=== PATIENT | male | born 1955 | race Caucasian/White ===

== ENCOUNTER 2017-03-25 15:35 | Observation (INO) | payer BC ==
[~2017-03-25] VITALS: Ht 188 cm; Wt 129.0 kg
--- NOTE | 2017-03-25 15:49 | PHYS DOC ---
Adult General HPI HPI Patient is a 61 year old M who presents with dizziness. Patient was digging a ditch for the past couple hours and when he got done he attempted to walk to his truck and became extremely dizzy but did not pass out. Patient complains of some shortness of breath but denies chest pain. Patient states he's had these episodes off-and-on for the past couple days however today was by far the worst. Patient denies any fevers. Patient denies any nausea/vomiting/diarrhea. Patient has no other complaints. Review of Systems Review of Systems GEN: Denies fevers, chills, sweats HEENT: Denies blurred vision, sore throat CV: Denies chest pain RESP: Denies shortness of air, cough GI: Denies n/v/d NEURO: dizziness MSK: Denies weakness, joint pain/swelling Physical Exam Physical Exam GEN.: Moderate distress, generalized weakness, HEENT: Head is normocephalic, atraumatic NECK: Supple. LUNGS: CTAB. HEART: RRR, S1, S2 present. Peripheral pulses intact ABDOMEN: Soft, nontender. Positive bowel sounds. EXTREMITIES: Without any cyanosis. NEUROLOGIC: Cranial nerves II through grossly intact without any focal neurologic deficits PSYCHIATRIC: Confused SKIN: No ulcerations Current Patient Data Lab Results Laboratory Tests Test 03/25/17 15:50 White Blood Count 10.9 x10^3/uL Red Blood Count 5.08 x10^6/uL Hemoglobin 15.2 g/dL Hematocrit 43.5 % Mean Corpuscular Volume 86 fL Mean Corpuscular Hemoglobin 30 pg Mean Corpuscular Hemoglobin Concent 35 g/dL Red Cell Distribution Width 14.3 % Platelet Count 169 x10^3/uL Neutrophils (%) (Auto) 81 % Lymphocytes (%) (Auto) 12 % Monocytes (%) (Auto) 6 % Eosinophils (%) (Auto) 0 % Basophils (%) (Auto) 1 % Neutrophils # (Auto) 8.8 x10^3uL Lymphocytes # (Auto) 1.3 x10^3/uL Monocytes # (Auto) 0.6 x10^3/uL Eosinophils # (Auto) 0.0 x10^3/uL Basophils # (Auto) 0.1 x10^3/uL Sodium Level 141 mmol/L Potassium Level 3.8 mmol/L Chloride Level 103 mmol/L Carbon Dioxide Level 22 mmol/L Anion Gap 16 Blood Urea Nitrogen 31 mg/dL Creatinine 2.0 mg/dL Estimated GFR (Cockcroft-Gault) 33.9 BUN/Creatinine Ratio 16 Glucose Level 161 mg/dL Calcium Level 9.9 mg/dL Total Bilirubin 1.1 mg/dL Aspartate Amino Transf (AST/SGOT) 23 U/L Alanine Aminotransferase (ALT/SGPT) 42 U/L Alkaline Phosphatase 72 U/L Troponin I Quantitative < 0.017 ng/mL Total Protein 8.1 g/dL Albumin 4.5 g/dL Albumin/Globulin Ratio 1.3 Current Medications Medications (Trade) Dose Ordered Sig/Tami Route PRN Reason Start Time Stop Time Status Last Admin Dose Admin Sodium Chloride 1,000 ml @ 1,000 mls/hr 1X ONCE IV 03/25/17 16:00 03/25/17 16:59 03/25/17 16:05 EKG EKG 1542: EKG shows normal sinus rhythm rate of 84 no STEMI [] Radiology/Procedures Radiology/Procedures CT Head: No obvious intracranial bleed [] Course & Med Decision Making Course & Med Decision Making Pertinent Labs and Imaging studies reviewed. (See chart for details) ED course: Patient was seen and evaluated emergency room cardiac workup was ordered 1630: Updated patient on the lab results and the plan to admit for acute renal failure and heatstroke, on reexamination patient's patient's mental status has improved 1643: Discussed CC/HP/PMH with Dr. Marie and recommends admit [] MDM: After reviewing the chart, CC/HPI/PMH, physical exam, [lab results], [ radiological results], I believe the patient suffered from heatstroke with acute renal failure and needs to be admitted to hospital for further evaluation and management. On reexamination patient's mental status improved. Dragon Disclaimer Dragon Disclaimer This chart was dictated in whole or in part using Voice Recognition software in a busy, high-work load, and often noisy Emergency Department environment. It may contain unintended and wholly unrecognized errors or omissions. Departure Departure: Impression: Primary Impression: Acute renal failure Additional Impression: Heatstroke Disposition: ADMITTED INPATIENT Admitting Physician: Andrea Marie Condition: IMPROVED Referrals: ANDREA MARIE MD (PCP) Problem Qualifiers Primary Impression: Acute renal failure Acute renal failure type: unspecified Qualified Codes: N17.9 - Acute kidney failure, unspecified Additional Impression: Heatstroke Encounter type: initial encounter Qualified Codes: T67.0XXA - Heatstroke and sunstroke, initial encounter PRESTON GARCIA DO Mar 25, 2017 15:48
[2017-03-25] MEDS ORDERED: IV NORMAL SALINE 1,000ML 1,000 ML IV ONE (16:00)
[2017-03-25 16:07] LABS: BASO # 0.1 x10^3/uL (0.0-0.2); BASO % 1 % (0-3); EOS % 0 % (0-3); HEMATOCRIT 43.5 % (39.0-53.0); HEMOGLOBIN 15.2 g/dL (13.0-17.5); LYMPH # 1.3 x10^3/uL (1.0-4.8); LYMPH % 12 % (24-48); MEAN CORPUSCULAR HEMOGLOBIN 30 pg (25-35); MEAN CORPUSCULAR HGB CONC 35 g/dL (31-37); MEAN CORPUSCULAR VOLUME 86 fL (79-100); MONO # 0.6 x10^3/uL (0.0-1.1); MONO % 6 % (0-9); NEUT # 8.8 x10^3uL (1.8-7.7); NEUT % 81 % (31-73); PLATELET COUNT 169 x10^3/uL (140-400); RED BLOOD COUNT 5.08 x10^6/uL (4.30-5.70); RED CELL DISTRIBUTION WIDTH 14.3 % (11.5-14.5); WHITE BLOOD COUNT 10.9 x10^3/uL (4.0-11.0)
[2017-03-25 16:17] LABS: ALBUMIN 4.5 g/dL (3.4-5.0); ALBUMIN/GLOBULIN RATIO 1.3 (1.0-1.7); CALCIUM 9.9 mg/dL (8.5-10.1); GFR 33.9; POTASSIUM 3.8 mmol/L (3.5-5.1); TOTAL BILIRUBIN 1.1 mg/dL (0.2-1.0); TOTAL PROTEIN 8.1 g/dL (6.4-8.2)
--- NOTE | 2017-03-25 16:27 | RAD ---
CT of the head without contrast, 03/25/2017: History: Dizziness The ventricles are within normal limits in size. There is no shift of the midline structures. There is no evidence of acute intracranial hemorrhage or mass effect. IMPRESSION: No acute intracranial abnormality is detected. PQRS Compliance Statement: One or more of the following individualized dose reduction techniques were utilized for this examination: 1. Automated exposure control 2. Adjustment of the mA and/or kV according to patient size 3. Use of iterative reconstruction technique
[2017-03-25] MEDS ORDERED: ONDANSETRON PF 4 MG/2 ML VIAL. IV PRN (16:45)
[2017-03-25] MEDS ORDERED: MORPHINE SULFATE 4 MG/ML DISP.SYRIN. IV PRN (16:45)
[2017-03-25] MEDS ORDERED: ACETAMINOPHEN 325 MG TABLET PO PRN (16:45)
[2017-03-25 16:51] LABS: BILIRUBIN,URINE NEG (NEG); CLARITY,URINE CLEAR; COLOR,URINE YELLOW; GLUCOSE,URINE NEG (NEG)
[2017-03-25 16:52] LABS: BACTERIA,URINE 0 /HPF (0-FEW); NITRITE,URINE NEG (NEG); SQUAMOUS EPITHELIAL CELL,UR FEW /LPF; UROBILINOGEN,URINE 0.2 mg/dL (0.2 mg/dL)
[2017-03-25 16:54] LABS: HYALINE CASTS, URINE MANY /HPF
[2017-03-25] MEDS ORDERED: ONDANSETRON PF 4 MG/2 ML VIAL. IV ONE (17:00)
--- NOTE | 2017-03-25 17:18 | RAD ---
Chest Single view 03/25/2017 Indication: Dizziness. Comparison: 08/06/2010. Findings: Hyperinflation of both lungs. Cardiac and mediastinal silhouettes are within normal limits. No pleural effusion, pneumothorax or focal consolidation. Impression: No acute cardiopulmonary abnormality.
[2017-03-25] MEDS: IV NORMAL SALINE 1,000ML 1,000 ML IV SCH (17:42)
[2017-03-25 17:48] VITALS: BP 135/67
--- NOTE | 2017-03-25 18:03 | EKG ---
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
[2017-03-25] MEDS ORDERED: SILD20TA2 PO (18:26)
[2017-03-25] MEDS ORDERED: TAMS0.4C2 PO (18:26)
[2017-03-25 19:36] VITALS: BP 114/69
[2017-03-25] MEDS ORDERED: SIMV40TA3 PO (19:44)
[2017-03-25] MEDS ORDERED: ONDA4TAB10 PO (19:44)
[2017-03-25] MEDS ORDERED: CLON0.1T PO (19:44)
[2017-03-25] MEDS ORDERED: ATEN50TA PO (19:44)
[2017-03-25] MEDS ORDERED: MINO100C PO (19:44)
[2017-03-25] MEDS ORDERED: ASPI81TA50 PO (19:44)
[2017-03-25] MEDS ORDERED: GLYB5TAB3 PO (19:44)
[2017-03-25] MEDS ORDERED: NIFE30TA9 PO (19:44)
[2017-03-25] MEDS ORDERED: LISI1TAB7 PO (19:44)
[2017-03-25] MEDS ORDERED: ONDANSETRON ODT 4 MG TAB.RAPDIS PO PRN (19:45)
[2017-03-25] MEDS: cloNIDine HCL 0.1 MG TABLET PO SCH (20:45)
[2017-03-25 20:51] VITALS: BP 116/77
[2017-03-25] MEDS ORDERED: ATENOLOL 50 MG TABLET PO SCH (21:00)
[2017-03-25] MEDS ORDERED: glyBURIDE 5 MG TABLET PO SCH (21:00)
[2017-03-25] MEDS ORDERED: MINOCYCLINE 100 MG CAPSULE PO SCH (21:00)
[2017-03-25 23:12] VITALS: BP 127/74
--- NOTE | 2017-03-26 01:16 | ACF ---
Admission Criteria Forms RENAL FAILURE, ACUTE Clinical Indications for Admission to Inpatient Care ( Place 'X' for any and all applicable criteria): Admission is indicated for ALL (if I & II) or III of the following [A](2)(3)(4)( 5)(6)(7): [ ]I. Acute renal failure as indicated by ANY ONE of the following: [ ]a) A 3-fold rise in serum creatinine from baseline [ ]b) Serum creatinine greater than 4 mg/dL (354 micromoles/L) with an acute rise greater than 0.5 mg/dL (44.2 micromoles/L) [ ]c) Reduction of more than 75% in estimated glomerular filtration rate from baseline [ ]d) Estimated glomerular filtration rate less than 35 mL/min/1.73m2 (0.59mL/sec/1.73m2)in a child up to 18 years of age [ ]e) Anuria indicated by ALL of the following: [ ]i) Adequate volume status [ ]ii) Cessation of urine output indicated by ANY ONE of the following: [ ]1) Urine output less than 0.3 mL/kg/hr for 24 hours [ ]2) Anuria (urine output less than 0.1 mL/kg/ hr) for 12 hours [ ] II. Renal failure cannot be managed in an outpatient setting or observational care setting as indicating by ANY ONE of the following: [ ]a) Altered mental status that is severe or persistent [ ]b) Volume overload or Respiratory distress (eg, clinically significant pulmonary edema) that is severe or persistent [ ]c) Cardiac arrhythmias of immediate concern [ ]d) Hemodynamic instability [ ]e) Clinically significant electrolyte abnormality that requires inpatient care (eg, hyperkalemia with severe ECG findings)[B] [ ]f) Clinically significant metabolic abnormality (eg, acidosis) that is severe or persistent [ ]g) Acute treatment of renal failure (eg, renal replacement therapy) not feasible or appropriate in observational care setting [ ]h) Clinical situation too unstable or uncertain (eg, inadequate urine output, ongoing decline in renal function, etiology unclear) [ ]i) Necessary support and caregiver ability to comply with outpatient treatment cannot be arranged in observation care timeframe (eg, within 24 hours) [ ]j) Other significant finding or clinical condition judged not to be within scope of observation care [x]III.General contraindications and/or Inappropriate clinical situations for Observational Care in patients with Acute Renal Failure, when ANY ONE of the following is required: [ x]a) Prediction of prolongation of LOS based on ANY ONE of the following may be considered as a contraindication for observational care 2, 3, 4, 5, 6, 7, 8 , 9, 10, 11 [ ]i) Age > 65 yrs. [ ]ii) Patient arriving by ambulance [ ]iii) Patient with high acuity [x]iv) Patient requiring vital sign monitoring [ ]v) Patient on IV medication [ ]b) Systolic blood pressures 180mmHg 3,12 [ ]c) Patient with altered mental status including delirium and other alteration of consciousness, (3) [ ]d) Patient whose discharge disposition will be to a fpc home or rehabilitation home should not be managed in Emergency Department Observation Unit. CMS rule requires 3 days hospital stay before such placement.3,13 [ ]e) Patient with failure to thrive due to broad array of etiologies 3, 16,17 [ ]f) Inability to ambulate 3,14 Extended stay beyond goal length of stay may be needed for(13) [ ]a) Continuing uremic complications [ ]b) Care for comorbidities [ ]c) acute renal failure [ ]d) Need for dialysis The original [employer] content created by [employer] has been revised. The portions of the content which have been revised are identified through the use of italic text or in bold, and [facility] has neither reviewed nor approved the modified material. All other unmodified content is copyright [employer]. Please see references footnoted in the original [facility] edition 2016 Admission Criteria Met?: Yes MAURA REMY Mar 26, 2017 01:15
[2017-03-26] MEDS: IV NORMAL SALINE 1,000ML 1,000 ML IV SCH (01:43)
[2017-03-26 05:47] VITALS: BP 118/71
[2017-03-26 05:55] LABS: BASO # 0.1 x10^3/uL (0.0-0.2); BASO % 1 % (0-3); EOS # 0.2 x10^3/uL (0.0-0.7); EOS % 2 % (0-3); HEMATOCRIT 37.9 % (39.0-53.0); HEMOGLOBIN 12.9 g/dL (13.0-17.5); LYMPH # 2.2 x10^3/uL (1.0-4.8); LYMPH % 23 % (24-48); MEAN CORPUSCULAR HEMOGLOBIN 30 pg (25-35); MEAN CORPUSCULAR HGB CONC 34 g/dL (31-37); MEAN CORPUSCULAR VOLUME 88 fL (79-100); MONO # 0.7 x10^3/uL (0.0-1.1); MONO % 8 % (0-9); NEUT # 6.3 x10^3uL (1.8-7.7); NEUT % 66 % (31-73); PLATELET COUNT 144 x10^3/uL (140-400); RED BLOOD COUNT 4.32 x10^6/uL (4.30-5.70); RED CELL DISTRIBUTION WIDTH 14.1 % (11.5-14.5); WHITE BLOOD COUNT 9.6 x10^3/uL (4.0-11.0)
[2017-03-26 06:04] LABS: ALBUMIN 3.5 g/dL (3.4-5.0); ALBUMIN/GLOBULIN RATIO 1.1 (1.0-1.7); CALCIUM 8.3 mg/dL (8.5-10.1); CREATININE 1.4 mg/dL (0.7-1.3); GFR 51.2; POTASSIUM 3.8 mmol/L (3.5-5.1); TOTAL BILIRUBIN 0.6 mg/dL (0.2-1.0); TOTAL PROTEIN 6.6 g/dL (6.4-8.2)
[2017-03-26 07:56] VITALS: BP 118/71
[2017-03-26] MEDS: cloNIDine HCL 0.1 MG TABLET PO SCH (07:56)
[2017-03-26] MEDS ORDERED: ASPIRIN ENTERIC COATED 81 MG TABLET.DR. PO SCH (09:00)
[2017-03-26] MEDS ORDERED: SIMVASTATIN 40 MG TABLET. PO SCH (09:00)
[2017-03-26] MEDS ORDERED: hydroCHLOROthiazide 25 MG TABLET PO SCH (09:00)
[2017-03-26] MEDS ORDERED: LISINOPRIL 20 MG TABLET PO SCH (09:00)
--- NOTE | 2017-04-01 15:09 | HP ---
ADMIT DATE: 03/25/2017 HISTORY OF PRESENT ILLNESS: A 61-year-old gentleman came in through the Emergency Room, apparently have been out working on his place here for the last couple of days in the hot sun, not drinking enough fluids, became increasingly dizzy, lightheaded, did not pass out, did have some shortness of breath, but denied any chest pain. The patient does have these episodes last couple of days. He denies any nausea, vomiting. When he came through the Emergency Room, the patient has somewhat decreased mental affect and was noted to be hyperthermia. The patient was admitted to the hospital for further evaluation and treatment thereof. 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 MEDICATIONS: Adalat CC 30 mg, atenolol 50 mg, Zocor 40, Flomax 0.4, lisinopril/hydrochlorothiazide 20/25, Celebrex 200, minocycline 100 mg daily, clonidine 0.1 b.i.d., Xanax 0.25, glyburide 5 mg daily. ALLERGIES: Hydrocodone, metformin, and lisinopril. FAMILY HISTORY: Father had heart disease, coronary artery disease with multiple stents. Mother alive at 76 years of age. SOCIAL HISTORY: The patient denies smoking, alcohol, or drug use. REVIEW OF SYSTEMS: Unremarkable. The patient denies any general lethargy, lightheadedness. PHYSICAL EXAMINATION: GENERAL: White male in moderate amount of distress. VITAL SIGNS: Blood pressure 144/76, pulse 90, temperature actually low at 97.9, pulse ox excellent. HEENT: The patient's head atraumatic, normocephalic. Eyes: PERRLA without jaundice. SKIN: Kind of cool and clammy otherwise. NECK: Supple. LUNGS: Diminished, but clear. CARDIOVASCULAR: Regular sinus rhythm, S1, S2. ABDOMEN: Soft, nontender. No rebound or guarding. Positive bowel sounds. EXTREMITIES: No clubbing, cyanosis, or edema. NEUROLOGIC: The patient alert and oriented x 3. IMPRESSION: Hyperthermia, dehydration. PLAN: The patient will be admitted, given IV bolus of cooled normal saline, monitor for any further change in mental status to make further evaluation on him as indicated. HALINA YIN MD DR: KISHAN/alma JOB#: [id number] / [id number]
--- NOTE | 2017-04-01 19:16 | DS ---
DATE OF DISCHARGE: 03/26/2017 HOSPITAL COURSE: The patient is a 61-year-old gentleman came in as a result of heat prostration became increasingly dizzy, lightheaded, and diaphoretic. The patient was out in the hot sun digging a ditch for the last couple of days. The patient notes really quite lethargic. He was found to be markedly dehydrated as a result of his workout there in the hot sun without drinking enough fluids. His creatinine was up to 2 and BUN of 31. He also had elevated hemoglobin and hematocrit compared to what it was after he was given boluses of IV normal saline came down to 12 and 37 and the creatinine went from 2 to 1.4. Otherwise, cardiac enzymes were negative. Sodium and potassium are negative. The patient made excellent progress during the rest of his hospitalization and was discharged home on regular diet and decreased activity. He warned about working in the hot sun without getting enough fluids. He understood. The patient will return to clinic in 7-10 days or sooner as needed. ____ see MRAD. Decreased activity and return to clinic for follow up as indicated. HALINA YIN MD DR: KISHAN/alma JOB#: [id number] / [id number]
== END 2017-03-26 11:47 | disposition home or self-care (01) ==
LOC: ER 15:35 → 1 SOUTH 16:46 → INTOOBSV 16:46 → ER 16:47
PROVIDERS: ADMIT Family Medicine; ATTEND Family Medicine
DX: R50.9 Fever, unspecified (principal); E86.0 Dehydration; E11.9 Type 2 diabetes mellitus without complications; I10 Essential (primary) hypertension; E78.5 Hyperlipidemia, unspecified; M47.896 Other spondylosis, lumbar region; M17.9 Osteoarthritis of knee, unspecified; K58.9 Irritable bowel syndrome, unspecified; N17.9 Acute kidney failure, unspecified; T67.5XXA Heat exhaustion, unspecified, initial encounter; Z82.49 Family history of ischemic heart disease and other diseases of the circulatory system
CPT/HCPCS: 36415; 70450; 71010; 80053; 81001; 84484; 85027; 93005; 96361; 96374; 97165; 99285; G0378; J2405; J7030; G0379

== ENCOUNTER 2021-05-02 13:17 | Emergency (ER) | payer MEDICARE, BC ==
[~2021-05-02] VITALS: Ht 188 cm; Wt 136.8 kg
[~2021-05-02 13:17] MED LIST: ASPI81TA50 PO; ATEN50TA PO; CLON0.1T PO; GLYB5TAB3 PO; LISI1TAB20 PO; MINO100C61 PO; NIFE30TA15 PO; ONDA4TAB10 PO; SILD20TA2 PO; SIMV40TA18 PO; TAMS0.4C2 PO
[2021-05-02 13:33] VITALS: BP 162/100
--- NOTE | 2021-05-02 13:51 | PHYS DOC ---
Past History Past Medical History: Diabetes, High Cholesterol, Hypertension Past Surgical History: Knee Replacement Alcohol Use: None Drug Use: None General Adult EDM: Chief Complaint: HYPERTENSION HPI: HPI: Patient is a 65-year-old male being seen in the ER for hypertension with nausea, lightheadedness, and headache that started last night. He usually takes 20 mg of lisinopril, hydrochlorothiazide, 0.1 mg of clonidine as needed, 50 mg atenolol. He states that he ran out of his hydrochlorothiazide 3 days ago. He has noticed some increased lower extremity edema since running out of his hydrochlorothiazide. Patient reports he checked his blood pressure last night and it was 206/112. He states that he usually takes 1 tablet of his clonidine when his blood pressure is elevated but took 3 last night. He went to his half sole fitter this afternoon and was sent to the ER. He states that he cannot rate his level of pain in his head because it is not really a pain. He states it is generalized. He denies vomiting, spinning sensation, phonophobia, photophobia, vision changes, chest pain, shortness of breath, fever. Upon ER arrival, patient's blood pressure is 162/100 and is noted to be bradycardic. Review of Systems: Review of Systems: 14 body systems of the review of systems have been reviewed. See HPI for pertinent positive and negative responses, otherwise all other systems are negative, nonpertinent or noncontributory Allergies: Allergies: Allergies Coded Allergies Type Severity Reaction Last Updated Verified meperidine Allergy Unknown 03/25/17 Yes Physical Exam: PE: Constitutional: Well developed, well nourished, no acute distress, non-toxic appearance. [] HENT: Normocephalic, atraumatic, bilateral external ears normal, oropharynx moist, no oral exudates, nose normal. [] Eyes: PERRLA, EOMI, 4 mm bilaterally, conjunctiva normal, no discharge. [] Neck: Normal range of motion, no stridor Cardiovascular:Heart rate bradycardic rhythm, no murmur [] Lungs & Thorax: Bilateral breath sounds clear to auscultation [] Abdomen: Bowel sounds normal, soft, obese, no tenderness, no masses, no pulsatile masses. [] Skin: Warm, dry, no erythema, no rash. [] Back: Normal range of motion Extremities: No tenderness, no cyanosis, no clubbing, ROM intact, no edema. [] Neurologic: Alert and oriented X 3, normal motor function, normal sensory function, no focal deficits noted. [] Psychologic: Affect normal, judgement normal, mood normal. [] Current Patient Data: Labs: Laboratory Tests Test 05/02/21 14:00 White Blood Count 7.6 x10^3/uL Red Blood Count 4.23 x10^6/uL Hemoglobin 13.0 g/dL Hematocrit 38.0 % Mean Corpuscular Volume 90 fL Mean Corpuscular Hemoglobin 31 pg Mean Corpuscular Hemoglobin Concent 34 g/dL Red Cell Distribution Width 14.6 % Platelet Count 144 x10^3/uL Neutrophils (%) (Auto) 72 % Lymphocytes (%) (Auto) 17 % Monocytes (%) (Auto) 7 % Eosinophils (%) (Auto) 3 % Basophils (%) (Auto) 1 % Neutrophils # (Auto) 5.5 x10^3uL Lymphocytes # (Auto) 1.3 x10^3/uL Monocytes # (Auto) 0.6 x10^3/uL Eosinophils # (Auto) 0.3 x10^3/uL Basophils # (Auto) 0.1 x10^3/uL Sodium Level 141 mmol/L Potassium Level 4.2 mmol/L Chloride Level 105 mmol/L Carbon Dioxide Level 30 mmol/L Anion Gap 6 Blood Urea Nitrogen 16 mg/dL Creatinine 1.0 mg/dL Estimated GFR (Cockcroft-Gault) 74.5 BUN/Creatinine Ratio 16 Glucose Level 158 mg/dL Calcium Level 9.1 mg/dL Total Bilirubin 0.8 mg/dL Aspartate Amino Transf (AST/SGOT) 20 U/L Alanine Aminotransferase (ALT/SGPT) 40 U/L Alkaline Phosphatase 79 U/L Troponin I Quantitative < 0.017 ng/mL PU-Xdx-R-Type Natriuretic Peptide 172 pg/mL Total Protein 6.5 g/dL Albumin 3.7 g/dL Albumin/Globulin Ratio 1.3 Current Medications Medications (Trade) Dose Ordered Sig/Tami Route PRN Reason Start Time Stop Time Status Last Admin Dose Admin Ondansetron HCl (Zofran) 4 mg 1X ONCE IVP 05/02/21 14:15 05/02/21 14:16 DC 05/02/21 14:13 Vital Signs: Vital Signs Date Time Temp Pulse Resp B/P (MAP) Pulse Ox O2 Delivery O2 Flow Rate FiO2 05/02/21 13:33 98.0 61 16 162/100 (120) 97 EKG: EKG: EKG performed by ER staff at 1358 shows sinus rhythm, no STEMI read by Dr. Ferreira at 1405. [] Radiology/Procedures: Radiology/Procedures: PROCEDURE: CHEST AP ONLY Single view of the chest. 05/02/2021 1:46 PM Indication: Reason: edema, htn Comparison: Chest radiograph March 25, 2017 Findings: Lung volumes are low. No pneumothorax or pleural effusion is seen. Heart size is within normal limits given depth of inspiration. No focal infiltrates are seen. No acute osseous changes are identified. IMPRESSION: No evidence of acute cardiopulmonary process Electronically signed by: Silvano Carr MD (05/02/2021 1:54 PM) [id number] DICTATED AND SIGNED BY: SILVANO CARR MD DATE: 05/02/21 1355 CC: HALINA YIN MD; REGINALD BAZAN APRN ~MTH0 0 []PROCEDURE: CT HEAD WO CONTRAST CT HEAD WITHOUT CONTRAST 05/02/2021 1:46 PM Indication: Reason: dizziness, headache, htn / Spl. Instructions: / History: Comparison: CT head without contrast March 25, 2017 Procedure: Multidetector CT imaging of the head was performed without the admi nistration of contrast. Findings: There is no evidence of acute intracranial hemorrhage. There is no evidence of acute territorial infarction. Please note that CT is limited for evaluation of acute ischemia. No mass effect or midline shift is identified . The ventricles and basilar cisterns have an appropriate appearance. No abnormal extra-axial fluid collections are seen. No acute osseous changes are identified. Impression: No evidence of acute intracranial abnormality CT DOSING PQRS STATEMENT: One or more of the following individualized dose reduction techniques were utilized for this examination: 1. Automated exposure control 2. Adjustment of the mA and/or kV according to patient size 3. Use of iterative reconstruction technique Electronically signed by: Silvano Carr MD (05/02/2021 1:53 PM) [id number] DICTATED AND SIGNED BY: SILVANO CARR MD DATE: 05/02/21 1350 CC: HALINA YIN MD; REGINALD BAZAN APRN ~MTH0 0 Heart Score: C/O Chest Pain: No Risk Factors: Risk Factors: DM, Current or recent (<one month) smoker, HTN, HLP, family history of CAD, obesity. Risk Scores: Score 0 - 3: 2.5% MACE over next 6 weeks - Discharge Home Score 4 - 6: 20.3% MACE over next 6 weeks - Admit for Clinical Observation Score 7 - 10: 72.7% MACE over next 6 weeks - Early Invasive Strategies Course & Med Decision Making: Course & Med Decision Making Pertinent Labs and Imaging studies reviewed. (See chart for details) Patient is a 65-year-old male being seen in the ER for hypertension with nausea, lightheadedness, and headache. Patient states that he ran out of his hydrochlorothiazide 3 days ago. Patient takes significant amount of blood pressure medication. Patient's blood pressure in the ER when he arrived was 162/100. He was noted to be bradycardic also in the high 50s to low 60s. Work- up in the ER consisted of blood work, EKG, CT scan of head due to headache and dizziness, and chest x-ray due to self-reported increased edema to his lower extremities. Patient's nausea treated with Zofran. Patient reports that his headache and nausea have resolved and he is just mildly lightheaded but feels much better. Patient's blood pressure was 160/80s. Lab work unremarkable. CXR and CT head unremarkable. Remainder of his vital signs were stable. Patient will be discharged home with his hydrochlorothiazide dose. He states he has got an appointment with Dr. Lee on Thursday. Discussed case with supervising physician. I discussed with patient all findings and diagnostic testing as well as the need to follow-up with PCP for further evaluation and treatment or return to the ER if any new or worsening symptoms. Strict return precautions were also discussed at length. Patient voiced understanding and agreement with the plan. Patient is hemodynamically stable at the time of disposition. Rosemary Disclaimer: Rosemary Disclaimer: This electronic medical record was generated, in whole or in part, using a voice recognition dictation system. Departure Departure: Impression: Primary Impression: Hypertension Qualified Codes: I10 - Essential (primary) hypertension Disposition: HOME / SELF CARE / HOMELESS Condition: GOOD Referrals: HALINA YIN MD (PCP) Patient Instructions: Hypertension Additional Instructions: You were seen in the ER today for hypertension. You were treated for nausea in the ER. You reported improvement in your symptoms. Your blood pressure has decreased in the ER. You will be discharged home with a prescription for your hydrochlorothiazide. Please take this as directed along with your other hypert ension medications. You can take Tylenol/ibuprofen for your pain as needed. Please continue to monitor your blood pressures at home. Follow-up with Dr. Lee as previously scheduled on Thursday. Return to the ER if you develop chest pain, shortness of breath, lightheadedness, intractable nausea or vomiting, confusion, vision changes or any new or worsening symptoms. EMERGENCY DEPARTMENT GENERAL DISCHARGE INSTRUCTIONS Thank you for coming to [facility] (ED) today and trusting us with you care. We trust that you had a positivie experience in our Emergency Department. If you wish to speak to the department management, you may call the director at [phone]. YOUR FOLLOW UP INSTRUCTIONS ARE FOLLOWS: 1. Do you have a private Doctor? If you do not have a private doctor, please ask for a resource list of physicians or clinics that may be able to assist you with follow up care. 2. The Emergency Physician has interpreted your x-rays. The X-Ray specialist will also review them. If there is a change in the findings, you will be notified in 48 hours when at all possible. 3. A lab test or culture has been done, your results will be reviewed and you will be notified if you need a change in treatment. ADDITIONAL INSTRUCTIONS AND INFORMATION: 1. Your care today has been supervised by a physician who is specially trained in emergency care. Many problems require more than one evaluation for a complete diagnosis and treatment. We recommend that you schedule your follow up appointment as recommended to ensure complete treatment of you illness or injury. If you are unable to obtain follow up care and continue to have a problem, or if your condition worsens, we recommend that you return to the ED. 2. We are not able to safely determine your condition over the phone nor are we able to give sound medical advice over the phone. For these safety reasons, if you call for medical advice we will ask you to come to the ED for further evaluation. 3. If you have any questions regarding these discharge instructions please call the ED at [phone]. SAFETY INFORMATION: In the interest of safety, wellness, and injury prevention; we encourage you to wear your sealbelt, if you smoke; quite smoking, and we encourage family to use a protective helmet for bicycling and other sporting events that present an increased risk for head injury. IF YOUR SYMPTOMS WORSEN OR NEW SYMPTOMS DEVELOP, OR YOU HAVE CONCERNS ABOUT YOUR CONDITION; OR IF YOUR CONDITION WORSENS WHILE YOU ARE WAITING FOR YOUR FOLLOW UP APPOINTMENT; EITHER CONTACT YOUR PRIMARY CARE DOCTOR, THE PHYSICIAN WHOSE NAME AND NUMBER YOU WERE GIVEN, OR RETURN TO THE ED IMMEDIATELY. Scripts Hydrochlorothiazide (HYDROCHLOROTHIAZIDE TABLET ) 25 Mg Tablet 25 MG PO DAILY for DIURETIC for 10 Days, #10 TAB 0 Refills Prov: REGINALD BAZAN APRN 05/02/21 REGINALD BAZAN APRN May 02, 2021 13:51
--- NOTE | 2021-05-02 13:55 | RAD ---
CT HEAD WITHOUT CONTRAST 05/02/2021 1:46 PM Indication: Reason: dizziness, headache, htn / Spl. Instructions: / History: Comparison: CT head without contrast March 25, 2017 Procedure: Multidetector CT imaging of the head was performed without the administration of contrast. Findings: There is no evidence of acute intracranial hemorrhage. There is no evidence of acute territ orial infarction. Please note that CT is limited for evaluation of acute ischemia. No mass effect or midline shift is identified . The ventricles and basilar cisterns have an appropriate appearance. No abnormal extra-axial fluid collections are seen. No acute osseous changes are identified. Impression: No evidence of acute intracranial abnormality CT DOSING PQRS STATEMENT: One or more of the following individualized dose reduction techniques were utilized for this examinat ion: 1. Automated exposure control 2. Adjustment of the mA and/or kV according to patient size 3. Use of iterative reconstruction technique Electronically signed by: Silvano Carr MD (05/02/2021 1:53 PM) [id number]
--- NOTE | 2021-05-02 13:56 | RAD ---
Single view of the chest. 05/02/2021 1:46 PM Indication: Reason: edema, htn Comparison: Chest radiograph March 25, 2017 Findings: Lung volumes are low. No pneumothorax or pleural effusion is seen. Heart size is within nor mal limits given depth of inspiration. No focal infiltrates are seen. No acute osseous changes are id entified. IMPRESSION: No evidence of acute cardiopulmonary process Electronically signed by: Silvano Carr MD (05/02/2021 1:54 PM) [id number]
[2021-05-02] MEDS: ONDANSETRON PF 4 MG/2 ML VIAL. IVP ONE (14:13)
[2021-05-02 14:18] LABS: BASO # 0.1 x10^3/uL (0.0-0.2); BASO % 1 % (0-3); EOS # 0.3 x10^3/uL (0.0-0.7); EOS % 3 % (0-3); LYMPH # 1.3 x10^3/uL (1.0-4.8); LYMPH % 17 % (24-48); MEAN CORPUSCULAR HEMOGLOBIN 31 pg (25-35); MEAN CORPUSCULAR HGB CONC 34 g/dL (31-37); MEAN CORPUSCULAR VOLUME 90 fL (79-100); MONO # 0.6 x10^3/uL (0.0-1.1); MONO % 7 % (0-9); NEUT # 5.5 x10^3uL (1.8-7.7); NEUT % 72 % (31-73); PLATELET COUNT 144 x10^3/uL (140-400); RED BLOOD COUNT 4.23 x10^6/uL (4.30-5.70); RED CELL DISTRIBUTION WIDTH 14.6 % (11.5-14.5); WHITE BLOOD COUNT 7.6 x10^3/uL (4.0-11.0)
--- NOTE | 2021-05-02 14:21 | EKG ---
[address] [address] Test Date: 2021-05-02 Test Time: 13:58:21 Pat Name: ENRQIUE MORRISON Department: Room: Gender: M [employer]ager: : 1955 Requested By: REGINALD BAZAN Order Number: [id number] Reading MD: Measurements Intervals [place] Rate: 55 P: CO: QRS: 1 QRSD: 94 T: 32 QT: 428 QTc: 412 Interpretive Statements IRREGULAR RHYTHM, NO P-WAVE FOUND OTHERWISE NORMAL ECG RI6.02 No previous ECG available for comparison
[2021-05-02 14:37] LABS: CALCIUM 9.1 mg/dL (8.5-10.1); GFR 74.5; POTASSIUM 4.2 mmol/L (3.5-5.1)
[2021-05-02 14:49] LABS: ALBUMIN 3.7 g/dL (3.4-5.0); ALBUMIN/GLOBULIN RATIO 1.3 (1.0-1.7); TOTAL BILIRUBIN 0.8 mg/dL (0.2-1.0); TOTAL PROTEIN 6.5 g/dL (6.4-8.2)
[2021-05-02] MEDS ORDERED: HYDR-2145 PO (15:12)
[2021-05-02 16:28] LABS: BILIRUBIN,URINE NEG (NEG); CLARITY,URINE CLEAR; COLOR,URINE YELLOW; GLUCOSE,URINE NEG (NEG)
[2021-05-02 16:29] LABS: BACTERIA,URINE 0 /HPF (0-FEW); NITRITE,URINE NEG (NEG); RBC,URINE OCC /HPF (0-2); SQUAMOUS EPITHELIAL CELL,UR FEW /LPF; UROBILINOGEN,URINE 0.2 mg/dL (0.2 mg/dL)
== END 2021-05-02 15:22 | disposition home or self-care (01) ==
LOC: ER 13:17
DX: I10 Essential (primary) hypertension (principal); R42 Dizziness and giddiness; R51.9 Headache, unspecified
CPT/HCPCS: 36415; 70450; 71045; 80053; 81001; 83880; 84484; 85025; 93005; 96374; 99285; J2405